=== PATIENT | female | born 1995 | race Asian ===

== ENCOUNTER 2019-09-02 19:53 | Emergency (ER) | payer OTHER ==
[2019-09-02 20:45] LABS: Influenza A Molecular Negative (Negative); Influenza B Molecular Negative (Negative)
--- NOTE | 2019-09-02 22:21 | UC ---
Throat Pain/Nasal [place] HPI - HPI Summary HPI Summary: 24-year-old woman comes in with a chief complaint of upper respiratory tract infection symptoms for 2 days. 2 days ago she started with a runny nose. The rhinorrhea is clear. Started getting postnasal drip and has a sore throat now. She felt warm and she bought a thermometer but it did not register that she had a fever. No chest congestion. Does hurt some to swallow. Does have a dry cough. Has had some bodyaches. No shortness of breath. Patient returned [facility] from [facility] 10 days ago. - History of Current Complaint Chief Complaint: UCGeneralIllness Stated Complaint: FEVER Time Seen by Provider: 09/02/19 20:49 Hx Last Menstrual Period: 07/06/19 Pain Intensity: 7 - Allergies/Home Medications Allergies/Adverse Reactions: Allergies Allergy/AdvReac Type Severity Reaction Status Date / Time No Known Allergies Allergy Verified 09/02/19 20:20 Home Medications: Home Medications NK [No Home Medications Reported] 09/02/19 [History Confirmed 09/02/19] PMH/Surg Hx/FS Hx/Imm Hx Previously Healthy: Yes - Surgical History Surgical History: None - Family History Known Family History: Positive: Non-Contributory - Social History Alcohol Use: None Substance Use Type: None Smoking Status (MU): Never Smoked Tobacco Review of Systems All Other Systems Reviewed And Are Negative: Yes Constitutional: Positive: Other - SEE HPI Skin: Positive: Negative Eyes: Positive: Negative ENT: Positive: Sore Throat, Nasal Discharge, Sinus Congestion Respiratory: Positive: Negative Cardiovascular: Positive: Negative Gastrointestinal: Positive: Negative Motor: Positive: Negative Neurovascular: Positive: Negative Musculoskeletal: Positive: Myalgia Neurological: Positive: Negative Psychological: Positive: Negative Is Patient Immunocompromised?: No Physical Exam Triage Information Reviewed: Yes Appearance: Well-Appearing, No Pain Distress, Well-Nourished Vital Signs: Initial Vital Signs Temp 98.6 F 09/02/19 20:12 Pulse 114 09/02/19 20:12 Resp 20 09/02/19 20:12 BP 122/83 09/02/19 20:12 Pulse Ox 96 09/02/19 20:12 Vital Signs Reviewed: Yes Eye Exam: Normal Eyes: Positive: Conjunctiva Clear ENT: Positive: Pharyngeal erythema, Nasal congestion, Nasal drainage, TMs normal Neck: Positive: Supple Respiratory: Positive: Lungs clear, Normal breath sounds, No respiratory distress Cardiovascular: Positive: RRR Musculoskeletal: Positive: Strength Intact, ROM Intact Neurological: Positive: Alert, Muscle Tone Normal Psychological: Positive: Age Appropriate Behavior Skin Exam: Normal Throat Pain/Nasal Course/Dx - Course Course Of Treatment: Nursing spoke with the state about the patient having been in [facility] 10 days ago. Patient is not at risk for coronavirus. Clinically patient has an upper respiratory tract infection with postnasal drip and a dry cough and some pharyngitis with a negative strep and a negative influenza. Patient will treat symptomatically and get reevaluated if worsening questions or concerns. - Differential Dx/Diagnosis Provider Diagnosis: Pharyngitis, Upper respiratory infection Discharge ED - Sign-Out/Discharge Documenting (check all that apply): Patient Departure All imaging exams completed and their final reports reviewed: No Studies - Discharge Plan Condition: Stable Disposition: HOME Patient Education Materials: Pharyngitis (ED), Upper Respiratory Infection (ED) Forms: *School Release Referrals: [facility] [Provider Group] Additional Instructions: FOLLOW UP WITH YOUR DOCTOR IF NOT COMPLETELY IMPROVED. GET REEVALUATED SOONER IF NOT IMPROVED OR WORSE OR ANY QUESTIONS OR CONCERNS. - Billing Disposition and Condition Condition: STABLE Disposition: Home
== END 2019-09-02 22:30 | disposition home or self-care (01) ==
LOC: UCEAST 19:53 → EDBD 19:53 → UCEAST 22:30
DX: J02.9 Acute pharyngitis, unspecified (principal); J06.9 Acute upper respiratory infection, unspecified
CPT/HCPCS: 87651; 99201; G0463